=== PATIENT | male | born 1975 | race American Indian/Alaskan Native ===

== ENCOUNTER 2019-08-11 20:21 | Emergency (ER) | payer SELFPAY ==
--- NOTE | 2019-08-11 21:54 | Emergency Department Report ---
Blank Doc - Documentation Documentation: 44-year-old male that presents with n/v and abdominal pain. This initial assessment/diagnostic orders/clinical plan/treatment(s) is/are subject to change based on patient's health status, clinical progression and re- assessment by fellow clinical providers in the ED. Further treatment and workup at subsequent clinical providers discretion. Patient/guardians urged not to elope from the ED as their condition may be serious if not clinically assessed and managed. Initial orders include: 1- Patient sent to [facility] for further evaluation and treatment 2- labs 3- UA
[2019-08-11 22:45] LABS: Basophils % (Auto) 0.4 % (0.0-1.8); Eosinophils # (Auto) 0.1 K/mm3 (0.0-0.4); Eosinophils % (Auto) 1.1 % (0.0-4.3); Hematocrit 44.2 % (35.5-45.6); Hemoglobin 15.2 gm/dl (11.8-15.2); Lymphocytes # (Auto) 1.3 K/mm3 (1.2-5.4); Lymphocytes % (Auto) 21.5 % (13.4-35.0); Mean Corpuscular HGB Conc 34 % (32-34); Mean Corpuscular Volume 85 fl (84-94); Monocytes # (Auto) 0.4 K/mm3 (0.0-0.8); Monocytes % (Auto) 7.2 % (0.0-7.3); Platelet Count 272 K/mm3 (140-440); Red Blood Count 5.18 M/mm3 (3.65-5.03); Red Cell Distribution Width 13.3 % (13.2-15.2)
[2019-08-11] MEDS ORDERED: ONDANSETRON 4 MG/2 ML INJ IV ONE (22:56)
[2019-08-11] MEDS ORDERED: DICYCLOMINE 20 MG/2 ML INJ IM ONE (22:56)
[2019-08-11] MEDS ORDERED: SODIUM CHLORIDE 0.9% 1000 ML 1,000 ML IV ONE (22:56)
[2019-08-11 23:06] LABS: Alanine Aminotransferase 27 units/L (7-56); Albumin 4.5 g/dL (3.9-5); BUN/Creatinine Ratio 10; Blood Urea Nitrogen 12 mg/dL (9-20); Calcium 9.4 mg/dL (8.4-10.2); Hemolysis Index 14
--- NOTE | 2019-08-11 23:10 | XRay Report ---
ABDOMEN 2 VIEW(S) INDICATION / CLINICAL INFORMATION: Abdominal pain, vomiting and diarrhea for 2 days. COMPARISON: None available. FINDINGS: TUBES / LINES: None. BOWEL GAS PATTERN: There is a moderately large amount of stool in the right and transverse colon. I s ee no evidence of bowel obstruction or mass effect. FREE AIR / EXTRALUMINAL GAS: None seen. ADDITIONAL FINDINGS: There is a right hip prosthesis. A transitional lumbosacral segment is noted. Th e right hemidiaphragm is mildly elevated. There are old posttraumatic changes involving the right low er rib cage laterally. IMPRESSION: No acute intra-abdominal disease. Signer Name: Kenny Mccoy MD Signed: 08/11/2019 11:06 PM Workstation Name: [id number]
--- NOTE | 2019-08-12 00:11 | Emergency Department Report ---
ED General Adult HPI - General Chief complaint: Nausea/Vomiting/Diarrhea Stated complaint: VOMITING DIARRHEA SNEEZING WEAKNESS Time Seen by Provider: 08/11/19 21:53 Source: patient Mode of arrival: Ambulatory Limitations: No Limitations - History of Present Illness Initial comments: Patient is a 44-year-old male presents emergency room with complaints of cold- like symptoms that began 2 days ago. He has associated dry cough, sneezing, nausea, vomiting, diarrhea. He states that he began to have body camping today after having several episodes of diarrhea. He states that he felt cramping churning sensation in the stomach but denies any abdominal pain. He denies any fever, hematochezia, hematemesis, melena, pus in the stool. He has a past me dical history of hypertension and right hip replacement. He denies any allergies medications. He is a nonsmoker. - Related Data Previous Rx's Medication Instructions Recorded Last Taken Type Docusate Sodium [Colace] 100 mg PO BID PRN #14 capsule 08/12/19 Unknown Rx Ondansetron [Zofran Odt] 4 mg PO Q8HR PRN #10 tab.rapdis 08/12/19 Unknown Rx Allergies Allergy/AdvReac Type Severity Reaction Status Date / Time No Known Allergies Allergy Unverified 08/11/19 21:42 ED Review of Systems ROS: Stated complaint: VOMITING DIARRHEA SNEEZING WEAKNESS Other details as noted in HPI Comment: All other systems reviewed and negative ED Past Medical Hx - Past Medical History Previous Medical History?: Yes Hx Hypertension: Yes - Surgical History Past Surgical History?: Yes Additional Surgical History: Right hip replacement, Left pinky amputation, right foot surgery. - Social History Smoking Status: Never Smoker Substance Use Type: None - Medications Home Medications: Home Medications Medication Instructions Recorded Confirmed Last Taken Type Docusate Sodium [Colace] 100 mg PO BID PRN #14 capsule 08/12/19 Unknown Rx Ondansetron [Zofran Odt] 4 mg PO Q8HR PRN #10 tab.rapdis 08/12/19 Unknown Rx ED Physical Exam - General Limitations: No Limitations General appearance: alert, in no apparent distress - Head Head exam: Present: atraumatic, normocephalic - Eye Eye exam: Present: normal appearance - ENT ENT exam: Present: normal orophraynx, mucous membranes moist, TM's normal bilaterally, normal external ear exam - Respiratory Respiratory exam: Present: normal lung sounds bilaterally. Absent: respiratory distress, wheezes, rales, rhonchi, stridor, chest wall tenderness, accessory muscle use, decreased breath sounds, prolonged expiratory - Cardiovascular Cardiovascular Exam: Present: regular rate, normal rhythm, normal heart sounds. Absent: systolic murmur, diastolic murmur, rubs, gallop - GI/Abdominal GI/Abdominal exam: Present: soft, normal bowel sounds. Absent: distended, tenderness, guarding, rebound, rigid - Neurological Exam Neurological exam: Present: alert, oriented X3 - Psychiatric Psychiatric exam: Present: normal affect, normal mood - Skin Skin exam: Present: warm, dry, intact, normal color ED Course Vital Signs 08/11/19 08/12/19 21:26 01:15 Temperature 98.5 F 98.0 F Pulse Rate 73 47 L Respiratory 20 16 Rate Blood Pressure 142/101 Blood Pressure 125/83 [Left] O2 Sat by Pulse 97 98 Oximetry ED Medical Decision Making - Lab Data Result diagrams: 08/11/19 22:26 08/11/19 22:26 Lab Results 08/11/19 08/11/19 Range/Units 22:26 22:26 WBC 6.1 (4.5-11.0) K/mm3 RBC 5.18 H (3.65-5.03) M/mm3 Hgb 15.2 (11.8-15.2) gm/dl Hct 44.2 (35.5-45.6) % MCV 85 (84-94) fl MCH 29 (28-32) pg MCHC 34 (32-34) % RDW 13.3 (13.2-15.2) % Plt Count 272 (140-440) K/mm3 Lymph % (Auto) 21.5 (13.4-35.0) % [place] % (Auto) 7.2 (0.0-7.3) % Eos % (Auto) 1.1 (0.0-4.3) % Baso % (Auto) 0.4 (0.0-1.8) % Lymph # 1.3 (1.2-5.4) K/mm3 [place] # 0.4 (0.0-0.8) K/mm3 Eos # 0.1 (0.0-0.4) K/mm3 Baso # 0.0 (0.0-0.1) K/mm3 Seg Neutrophils % 69.8 (40.0-70.0) % Seg Neutrophils # 4.3 (1.8-7.7) K/mm3 Sodium 140 (137-145) mmol/L Potassium 4.7 (3.6-5.0) mmol/L Chloride 104.1 (98-107) mmol/L Carbon Dioxide 24 (22-30) mmol/L Anion Gap 17 mmol/L BUN 12 (9-20) mg/dL Creatinine 1.2 (0.8-1.5) mg/dL Estimated GFR > 60 ml/min BUN/Creatinine Ratio 10 % Glucose 99 (75-100) mg/dL Calcium 9.4 (8.4-10.2) mg/dL Total Bilirubin 0.40 (0.1-1.2) mg/dL AST 35 (5-40) units/L ALT 27 (7-56) units/L Alkaline Phosphatase 61 (35-129) units/L Total Protein 7.2 (6.3-8.2) g/dL Albumin 4.5 (3.9-5) g/dL Albumin/Globulin Ratio 1.7 % Lipase 81 H (13-60) units/L - Radiology Data Radiology results: report reviewed ABDOMEN 2 VIEW(S) INDICATION / CLINICAL INFORMATION: Abdominal pain, vomiting and diarrhea for 2 days. COMPARISON: None available. FINDINGS: TUBES / LINES: None. BOWEL GAS PATTERN: There is a moderately large amount of stool in the right and transverse colon. I see no evidence of bowel obstruction or mass effect. FREE AIR / EXTRALUMINAL GAS: None seen. ADDITIONAL FINDINGS: There is a right hip prosthesis. A transitional lumbosacral segment is noted. The right hemidiaphragm is mildly elevated. There are old posttraumatic changes involving the right lower rib cage laterally. IMPRESSION: No acute intra-abdominal disease. Signer Name: Kenny Mccoy MD Signed: 08/11/2019 11:06 PM Workstation Name: [id number] Transcribed By: RT Dictated By: Kenny Mccoy MD Electronically Authenticated By: Kenny Mccoy MD Signed Date/Time: 08/11/192305 DD/ 03 TD/TT: - Medical Decision Making Patient is a 44-year-old male presents emergency room with complaints of cold- like symptoms that began 2 days ago. He has associated dry cough, sneezing, nausea, vomiting, diarrhea. He states that he began to have body camping today after having several episodes of diarrhea. He states that he felt cramping churning sensation in the stomach but denies any abdominal pain. He denies any fever, hematochezia, hematemesis, melena, pus in the stool. He has a past medical history of hypertension and right hip replacement. He denies any allergies medications. He is a nonsmoker. vitals initially with mildly elevated BP which improved to normal on repeat. cbc and CMP are normal. lipase very mildly elevated at 81, unlikely due to pancreatitis. no abd tenderness on palpation, pt has had no episodes of vomiting while in the ED. patient given 1 L normal saline, Bentyl, Zofran and symptoms improved. XR abd with chest: No acute intra-abdominal disease, constipation without obstruction. Discussed all results with patient. pt given prescription for Zofran and Colace. advised pt to please take medication as prescribed. Please increase your fluid intake over the next several days. Get plenty of rest. Follow-up with a primary care doctor next 2-3 days. Return to the emergency department for any new or worsening symptoms - Differential Diagnosis viral syndrome, gastroenteritis, dehydration, electrolyte issue, SHANE Critical care attestation.: If time is entered above; I have spent that time in minutes in the direct care of this critically ill patient, excluding procedure time. ED Disposition Clinical Impression: Viral illness, Nausea vomiting and diarrhea Constipation Qualifiers: Constipation type: unspecified constipation type Qualified Code(s): K59.00 - Constipation, unspecified Disposition: DC-01 TO HOME OR SELFCARE Is pt being admited?: No Does the pt Need Aspirin: No Condition: Stable Instructions: Constipation (ED), Gastroenteritis (ED), Viral Syndrome (ED) Additional Instructions: Please take medication as prescribed. Please increase your fluid intake over the next several days. Get plenty of rest. Follow-up with a primary care doctor next 2-3 days. Return to the emergency department for any new or worsening symptoms Prescriptions: Docusate Sodium [Colace] 100 mg PO BID PRN #14 capsule PRN Reason: constipation Ondansetron [Zofran Odt] 4 mg PO Q8HR PRN #10 tab.rapdis PRN Reason: Nausea And Vomiting Referrals: HODA TABOR MD [Staff Physician] - 2-3 Days [facility] [Outside] - 2-3 Days [facility] [Outside] - 2-3 Days Forms: Work/School Release Form(ED) Time of Disposition: 00:32 Print Language: GREEK
[2019-08-12 01:17] VITALS: BP 125/83
== END 2019-08-12 01:17 | disposition home or self-care (01) ==
LOC: ED 20:21
DX: B33.8 Other specified viral diseases (principal); K59.00 Constipation, unspecified
CPT/HCPCS: 36415; 74022; 80053; 83690; 85025; 96361; 96372; 96374; 99284; J0500; J2405; J7030